=== PATIENT | male | born 1975 | race Caucasian/White ===

== ENCOUNTER → 2022-07-07 | Outpatient (CLI) | payer OTHER | LOC: M PLAIMG 06:34 | PROVIDERS: ATTEND Physician Assistant | DX: M54.42 Lumbago with sciatica, left side (principal); M51.46 Schmorl's nodes, lumbar region; R90.89 Other abnormal findings on diagnostic imaging of central nervous system; M51.26 Other intervertebral disc displacement, lumbar region; M46.92 Unspecified inflammatory spondylopathy, cervical region; M50.323 Other cervical disc degeneration at C6-C7 level; M48.02 Spinal stenosis, cervical region ==

== ENCOUNTER → 2022-07-08 | Outpatient (CLI) | payer OTHER | LOC: M RAD 06:34 → EDUNIT# 07:00 | PROVIDERS: ATTEND Physician Assistant | DX: M77.12 Lateral epicondylitis, left elbow (principal); M75.21 Bicipital tendinitis, right shoulder; M62.89 Other specified disorders of muscle; M67.824 Other specified disorders of tendon, left elbow; M19.012 Primary osteoarthritis, left shoulder; M94.222 Chondromalacia, left elbow; R59.9 Enlarged lymph nodes, unspecified ==

== ENCOUNTER → 2022-09-20 | Outpatient (CLI) | payer OTHER ==
[~2022-09-20] MED LIST: PROHANCE 279.3MG/ML 15ML VIAL ONE; PROHANCE 279.3MG/ML 5ML VIAL ONE
== END ==
LOC: M PLAIMG 09:37
PROVIDERS: ATTEND Physician Assistant
DX: M54.2 Cervicalgia (principal); R93.7 Abnormal findings on diagnostic imaging of other parts of musculoskeletal system